=== PATIENT | male | born 1965 | race Two or more races ===

== ENCOUNTER 2024-05-07 22:47 | Emergency (ER) | payer MEDICAID, OTHER ==
[~2024-05-07] VITALS: Ht 195.6 cm; Wt 82.0 kg
--- NOTE | 2024-05-07 23:10 | ED.PDOC ---
History of Present Illness HPI Comments A 58 year old male brought in by EMS presents to the ED with a chief complaint of anxiety onset today. Per EMS, patient was at home, feeling anxious as well as shortness of breath. Patient states he took Fentanyl yesterday, was sober for 2 years. Patient is currently experiencing anxiety, shortness of breath and bilateral lower extremity pain and swelling. Denies chest pain, dizziness, headache, blurry vision, abdominal pain, nausea, vomiting, diarrhea, dysuria. No other symptoms or modifying factors present at this time. Chief Complaint: Anxiety Time Seen by MD: 23:01 Reviewed Notes: Nurses Notes, Certified Surgical Technologist Notes, Medications, Allergies Allergies: Coded Allergies: NO KNOWN ALLERGIES (Unverified , 05/07/24) Information Source: Patient, Emergency Med Personnel Mode of Arrival: EMS Severity: Moderate Timing: Hours Duration: Since onset Prehospital treatment: None Past Medical History PAST MEDICAL HISTORY: Denies Surgical History: Pacemaker Family History Family History: Unknown Social History Smoker: Non-Smoker Alcohol: Denies ETOH Use Drugs: Methamphetamine, Other (Fentanyl) Lives In: Home Constitutional: denies: chills, diaphoresis, fatigue, fever, malaise, sweats, weakness, others EENTM: denies: blurred vision, double vision, ear bleeding, ear discharge, ear drainage, ear pain, ear ringing, eye pain, eye redness, hearing loss, mouth pain, mouth swelling, nasal discharge, nose bleeding, nose congestion, nose pain, photophobia, tearing, throat pain, throat swelling, voice changes, others Respiratory: reports: shortness of breath; denies: cough, hemoptysis, orthopnea, SOB at rest, SOB with excertion, stridor, wheezing, others Cardiovascular: denies: chest pain, dizzy spells, diaphoresis, Dyspnea on exertion, edema, irregular heart beat, left arm pain, lightheadedness, palpitations, PND, syncope, others Gastrointestinal: denies: abdomen distended, abdominal pain, blood streaked bowels, constipated, diarrhea, dysphagia, difficulty swallowing, hematemesis, melena, nausea, poor appetite, poor fluid intake, rectal bleeding, rectal pain, vomiting, others Genitourinary: denies: burning, dysuria, flank pain, frequency, hematuria, incontinence, penile discharge, penile sore, pain, testicle pain, testicle swelling, urgency, others Neurological: denies: dizziness, fainting, headache, left sided numbness, left sided weakness, numbness, paresthesia, pre-existing deficit, right sided numbness, right sided weakness, seizure, speech problems, tingling, tremors, weakness, others Musculoskeletal: reports: others (bilateral leg pain, swelling); denies: back pain, gout, joint pain, joint swelling, muscle pain, muscle stiffness, neck pain Integumetry: denies: bruises, change in color, change in hair/nails, dryness, laceration, lesions, lumps, rash, wounds, others Allergic/Immunocompromised: denies: Difficulty Healing, Frequent Infections, Hives, Itching, others Hematologic/Lymphatic: denies: anemia, blood clots, easy bleeding, easy bruising, swollen glands, others Endocrine: denies: excessive hunger, excessive sweating, excessive thirst, excessive urination, flushing, intolerance to cold, intolerance to heat, unexplained weight gain, unexplained weight loss, others Psychiatric: reports: anxiety; denies: bipolar disorder, depression, hopeless, panic disorder, schizophrenia, sleepless, suicidal, others All Other Systems: Reviewed and Negative Physical Exam General Appearance: Moderate Distress (Patient is a moderate distress at time of evaluation.), Normal HEENT: Normal ENT Inspection, Pharynx Normal, TMs Normal Neck: Full Range of Motion, Non-Tender, Normal, Normal Inspection Respiratory: Chest Non-Tender, Lungs Clear, No Accessory Muscle Use, No Respiratory Distress, Normal Breath Sounds Cardiovascular: No Edema, No JVD, No Murmur, No Gallop, Normal Peripheral Pulses, Tachycardia Breast Exam: Deferred Gastrointestinal: No Organomegaly, Non Tender, No Pulsatile Mass, Normal Bowel Sounds, Soft Genitalia: Deferred Pelvic: Deferred Rectal: Deferred Extremities: Other (Patient displays left lower extremity edema as well as multiple excoriations and wounds to his bilateral lower extremities. Localized erythema and edema.) Neurologic: Alert, No Motor Deficits, Normal Affect, Normal Mood, No Sensory Deficits Cerebellar Function: Normal Reflexes: Normal Skin: Dry, Normal Color, Warm Lymphatic: No Adenopathy Was a procedure done? Was a procedure done?: No Differential Dx Considerations may include: DVT, sepsis, CHF, peripheral edema, drug abuse X-Ray, Labs, Meds, VS Vital Signs Date Time Temp Pulse Resp B/P (MAP) Pulse Ox O2 Delivery O2 Flow Rate FiO2 05/08/24 00:10 110 20 142/73 (96) 97 05/07/24 22:50 98.8 119 18 126/66 (86) 98 Lab Test 05/07/24 23:22 Range/Units White Blood Count 10.6 4.4-10.8 10^3/uL Red Blood Count 4.56 4.5-5.90 10^6/uL Hemoglobin 14.6 13.5-17.5 g/dL Hematocrit 42.9 41.0-53.0 % Mean Corpuscular Volume 94.2 80.0-100.0 fL Mean Corpuscular Hemoglobin 32.0 28.0-32.0 pg Mean Corpuscular Hemoglobin Concent 34.0 32.0-36.0 g/dL Red Cell Distribution Width 12.9 11.8-14.3 % Platelet Count 292 140-450 10^3/uL Mean Platelet Volume 8.4 6.9-10.8 fL Neutrophils (%) (Auto) 78.0 37.0-80.0 % Lymphocytes (%) (Auto) 11.5 10.0-50.0 % Monocytes (%) (Auto) 6.3 0.0-12.0 % Eosinophils (%) (Auto) 3.9 0.0-7.0 % Basophils (%) (Auto) 0.3 0.0-2.0 % Neutrophils # (Auto) 8.3 1.6-8.6 10 ^3/uL Lymphocytes # (Auto) 1.2 0.4-5.4 10 ^3/uL Monocytes # (Auto) 0.7 0-1.3 10 ^3/uL Eosinophils # (Auto) 0.4 0-0.8 10 ^3/uL Basophils # (Auto) 0 0-0.2 10 ^3/uL Nucleated Red Blood Cells 0.0 % Sodium Level 138 136-145 mmol/L Potassium Level 3.9 3.5-5.1 mmol/L Chloride Level 103 98-107 mmol/L Carbon Dioxide Level 28 20-31 mmol/L Anion Gap 7 5-15 Blood Urea Nitrogen 16 9-23 mg/dL Creatinine 0.82 0.700-1.30 mg/dL Glomerular Filtration Rate Calc 103 >90 mL/min BUN/Creatinine Ratio 19.5 10.0-20.0 Serum Glucose 151 H 74-106 mg/dL Lactic Acid Level 3.2 *H 0.4-2.0 mmol/L Calcium Level 10.1 8.7-10.4 mg/dL Total Bilirubin 0.3 0.2-1.0 mg/dL Aspartate Amino Transferase (AST) 39 13-40 U/L Alanine Aminotransferase (ALT) 28 7-40 U/L Alkaline Phosphatase 113 46-116 U/L Troponin I High Sensitivity 3 L </=54 ng/L B-Type Natriuretic Peptide 8.81 0-100 pg/mL Total Protein 7.1 5.7-8.2 g/dL Albumin 4.3 3.2-4.8 g/dL Lipase 27 12-53 U/L Current Medications Medications (Trade) Dose Ordered Sig/Bethany Route Start Time Stop Time Status Last Admin Alprazolam (Xanax Tablet) 1 mg ONCE ONCE PO 05/07/24 23:15 05/07/24 23:16 DC 05/08/24 00:13 X-Ray, Labs, Meds, VS Comment Patient's laboratories were only remarkable for an elevated lactic acid. I inquired as to why we had not done a 2nd draw, and was informed by nursing with the patient appears to have eloped from the facility. Time of 1ST Reevaluation: 02:08 Reevaluation 1ST: Unchanged Consultation: PCP Patient Education/Counseling: Diagnosis, Treatment, Prognosis Family Education/Counseling: Diagnosis, Treatment, No Family Present Additional Information I reviewed the following notes from patient's past medical encounters: The following tests were ordered, and results were reviewed by me: CBC, CMP, BNP, LIPASE, LA W/ REFLEX, UA, DRUG SCREEN, TROP, EKG, US LT LOWER DVT Additional Information was gathered from interviewing the following independent historians: EMS I reviewed and agreed with the following test results read by other providers: US LT LOWER DVT I discussed treatment and results with medical personnel and: patient Departure 1 Departure Time of Disposition: 02:09 Impression: Primary Impression: Anxiety Disposition: 07 LEFT AWOL/ELOPED Condition: Fair Discharged With: Self Critical Care Note Critical Care Time?: No Stability Stability form required: No Heart Score Heart Score: Heart Score Response (Comments) Value History N/A 0 EKG N/A 0 Age N/A 0 Risk Factors N/A 0 Troponin N/A 0 Total 0 I personally scribed for FERNANDO STEIN PAC ([email or web address]) on 05/07/24 at 23:10. Electronically submitted by Adriane Haddad ([email or web address]). I personally scribed for FERNANDO STEIN PAC ([email or web address]) on 05/07/24 at 23:12. Electronically submitted by Adriane Haddad ([email or web address]). FERNANDO STEIN PAC May 07, 2024 23:10
[2024-05-07 23:36] LABS: Basophils # (auto) 0 10 ^3/uL (0-0.2); Basophils % (auto) 0.3 % (0.0-2.0); Eosinophils # (auto) 0.4 10 ^3/uL (0-0.8); Eosinophils % (auto) 3.9 % (0.0-7.0); Hematocrit 42.9 % (41.0-53.0); Hemoglobin 14.6 g/dL (13.5-17.5); Lymphocytes # (auto) 1.2 10 ^3/uL (0.4-5.4); Lymphocytes % (auto) 11.5 % (10.0-50.0); Mean Corpuscular Volume 94.2 fL (80.0-100.0); Monocytes # (auto) 0.7 10 ^3/uL (0-1.3); Monocytes % (auto) 6.3 % (0.0-12.0); Neutrophils # (auto) 8.3 10 ^3/uL (1.6-8.6); Platelet Count (auto) 292 10^3/uL (140-450); Red Blood Cells 4.56 10^6/uL (4.5-5.90); Red Cell Distribution Width 12.9 % (11.8-14.3); White Blood Cell 10.6 10^3/uL (4.4-10.8)
[2024-05-07 23:53] LABS: Alanine Aminotransferase 28 U/L (7-40); Albumin 4.3 g/dL (3.2-4.8); Alkaline Phosphatase 113 U/L (46-116); Anion Gap 7 (5-15); Aspartate Aminotransferase 39 U/L (13-40); Calcium 10.1 mg/dL (8.7-10.4); Carbon Dioxide 28 mmol/L (20-31); Chloride 103 mmol/L (98-107); Lipase 27 U/L (12-53); Potassium 3.9 mmol/L (3.5-5.1); Sodium 138 mmol/L (136-145); Total Protein 7.1 g/dL (5.7-8.2)
[2024-05-08 00:07] LABS: Bilirubin, Total 0.3 mg/dL (0.2-1.0); Glucose 151 mg/dL (74-106)
[2024-05-08 00:10] VITALS: BP 142/73; PULSE 110; RESP 20; O2SAT 97
[2024-05-08] MEDS: ALPRAZolam 0.5 MG TAB PO ONE (00:13)
[2024-05-08 00:16] LABS: BUN/Creatinine Ratio 19.5 (10.0-20.0); Blood Urea Nitrogen 16 mg/dL (9-23)
[2024-05-08 00:21] LABS: Lactic Acid w/Reflex 3.2 mmol/L (0.4-2.0)
[2024-05-08] MEDS ORDERED: SODIUM CHLORIDE 0.9% 1,000 ML IV ONE (01:45)
== END 2024-05-08 02:07 | disposition left against medical advice (07) ==
LOC: EDBD 22:47 → ER 22:47
DX: F41.9 Anxiety disorder, unspecified (principal); F15.90 Other stimulant use, unspecified, uncomplicated; Z95.0 Presence of cardiac pacemaker
CPT/HCPCS: 36415; 80053; 83605; 83690; 83880; 84484; 85025

== ENCOUNTER 2025-04-15 22:09 | Inpatient (IN) | payer MEDICAID ==
[~2025-04-15] VITALS: Ht 195.6 cm; Wt 82.7 kg
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
[2025-04-16] MEDS ORDERED: VANCOMYCIN PER PHARMACY 0 MG IV SCH
[2025-04-16 00:24] LABS: Hematocrit 42.2 % (41.0-53.0); Hemoglobin 14.1 g/dL (13.5-17.5); Mean Corpuscular Hemoglobin 30.0 pg (28.0-32.0); Mean Corpuscular Volume 89.8 fL (80.0-100.0); Nucleated Red Blood Cells % 0.0 %
[2025-04-16 00:25] VITALS: PULSE 108; RESP 16; O2SAT 98
[2025-04-16 00:39] LABS: Chloride 106 mmol/L (98-107); Sodium 144 mmol/L (136-145)
[2025-04-16 00:40] LABS: Potassium 3.4 mmol/L (3.5-5.1)
[2025-04-16 00:41] LABS: Calcium 9.5 mg/dL (8.7-10.4)
[2025-04-16 00:46] LABS: BUN/Creatinine Ratio 11.9 (10.0-20.0)
[2025-04-16] MEDS: SODIUM CHLORIDE 0.9% 1,000 ML IV ONE (00:49)
[2025-04-16 00:53] LABS: Blood Urea Nitrogen 8 mg/dL (9-23); Glucose 117 mg/dL (74-106)
[2025-04-16] MEDS: VANCOMYCIN 1GM/250ML KIT 250 ML IV SCH ×2 (01:19→10:52)
[2025-04-16] MEDS: KETOROLAC TROMETH 30 MG/ML 1ML VIAL IV ONE (01:39)
[2025-04-16 01:40] LABS: Urine Protein, UAD TRACE (Negative)
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
[2025-04-16] MEDS ORDERED: ACETAMINOPHEN 325 MG TAB PO PRN (03:15)
[2025-04-16 03:28] LABS: Amphetamine Screen, Urine Neg (NEGATIVE)
[2025-04-16 03:30] LABS: Cannabinoid Screen, Urine Neg (NEGATIVE)
[2025-04-16 03:43] LABS: Benzodiazephine Screen, Urine Pos (NEGATIVE); Cocaine Screen, Urine Pos (NEGATIVE); Opiate Scree,Urine Neg (NEGATIVE); Phencyclidine Screen, Urine Neg (NEGATIVE)
[2025-04-16] MEDS: diphenhydrAMINE HCL 50 MG/1 ML VL IV ONE (03:56)
[2025-04-16 04:19] VITALS: BP 149/87; PULSE 74; RESP 19; TEMP 97.6; O2SAT 96; O2SAT 98
[2025-04-16 04:31] LABS: Barbiturate Scree,Urine Neg (NEGATIVE)
[2025-04-16 04:34] LABS: Anion Gap 10 (5-15); Carbon Dioxide 28 mmol/L (20-31)
[2025-04-16 06:13] LABS: Alanine Aminotransferase 23.0 U/L (7-40); Albumin 4.4 g/dL (3.2-4.8); Alkaline Phosphatase 79.0 U/L (46-116); Bilirubin, Direct 0.2 mg/dL (<0.3); Bilirubin, Total 0.4 mg/dL (0.2-1.0); Total Protein 7.3 g/dL (5.7-8.2)
[2025-04-16] MEDS: POTASSIUM CHL 20 Meq TABLET PO ONE (06:19)
[2025-04-16] MEDS: LORazepam 2MG/ML-1ML VIAL IV ONE (06:19)
[2025-04-16] MEDS: ENOXAPARIN SOD 40 MG/0.4 ML SYRINGE SC SCH (06:20)
[2025-04-16 09:00] VITALS: BP 138/82; PULSE 78; RESP 18; TEMP 97.3; O2SAT 96
--- NOTE | 2025-04-16 09:27 | DVH ---
Bilateral lower extremity venous duplex Clinical History: SWELLING Comparison: None Technique: Duplex doppler evaluation of the deep venous systems of both lower extremities from the common femoral veins to the popliteal veins including color doppler and spectral/pulsed waveform analysis was performed. Findings: RIGHT SIDE: The common femoral vein demonstrates appropriate compressibility and waveform variability. There is compressibility/patency of the great saphenous vein at the proximal thigh. The femoral vein demonstrates appropriate compressibility and waveform variability. The deep femoral vein demonstrates appropriate compressibility and waveform variability. The popliteal vein demonstrates appropriate compressibility and waveform variability. LEFT SIDE: The common femoral vein demonstrates appropriate compressibility and waveform variability. There is compressibility/patency of the great saphenous vein at the proximal thigh. The femoral vein demonstrates appropriate compressibility and waveform variability. The deep femoral vein demonstrates appropriate compressibility and waveform variability. The popliteal vein demonstrates appropriate compressibility and waveform variability. Impression: 1. No right or left femoropopliteal venous thrombosis.
[2025-04-16 10:50] LABS: COVID19 ANTIGEN SOFIA FIA NEGATIVE (NEGATIVE)
[2025-04-16] MEDS: diphenhydrAMINE HCL 50 MG/1 ML VL IV PRN (11:02)
[2025-04-16] MEDS: KETOROLAC TROMETH 30 MG/ML 1ML VIAL IV PRN (11:13)
[2025-04-16 13:00] VITALS: BP 137/94; PULSE 70; RESP 19; TEMP 97.6; O2SAT 98
[2025-04-16 17:00] VITALS: BP 138/84; PULSE 74; RESP 18; TEMP 97.6; O2SAT 96
[2025-04-16 21:00] VITALS: BP 131/85; PULSE 75; RESP 20; TEMP 98.1; O2SAT 95
[2025-04-17 01:30] VITALS: BP 128/88; PULSE 71; RESP 17; TEMP 97.7; O2SAT 95
[2025-04-17] MEDS: LORazepam 2MG/ML-1ML VIAL IV ONE ×2 (02:17→23:14)
[2025-04-17 05:00] VITALS: BP 150/90; PULSE 71; RESP 17; TEMP 97.6; O2SAT 97
[2025-04-17] MEDS: PANTOPRAZOLE 40 MG TAB PO SCH (05:19)
[2025-04-17 07:56] LABS: Hematocrit 38.7 % (41.0-53.0); Hemoglobin 13.3 g/dL (13.5-17.5); Mean Corpuscular Hemoglobin 31.1 pg (28.0-32.0); Mean Corpuscular Volume 90.3 fL (80.0-100.0); Nucleated Red Blood Cells % 0.1 %
[2025-04-17 07:57] LABS: Alanine Aminotransferase 18 U/L (7-40); Albumin 3.6 g/dL (3.2-4.8); Alkaline Phosphatase 65 U/L (46-116); Anion Gap 10 (5-15); BUN/Creatinine Ratio 11.3 (10.0-20.0); Bilirubin, Total 0.4 mg/dL (0.2-1.0); Calcium 9.3 mg/dL (8.7-10.4); Carbon Dioxide 27 mmol/L (20-31); Chloride 105 mmol/L (98-107); Glucose 101 mg/dL (74-106); Potassium 3.6 mmol/L (3.5-5.1); Sodium 142 mmol/L (136-145); Total Protein 6.1 g/dL (5.7-8.2)
[2025-04-17 08:05] LABS: Blood Urea Nitrogen 7 mg/dL (9-23)
[2025-04-17 09:00] VITALS: BP 121/64; PULSE 85; RESP 18; TEMP 98.6; O2SAT 95
[2025-04-17 13:00] VITALS: BP_SYST 114; BP_SYST 121; BP_DIAS 64; BP_DIAS 93; PULSE 64; PULSE 85; RESP 16; RESP 18; TEMP 98.4; TEMP 98.6; O2SAT 95
--- NOTE | 2025-04-17 15:58 | DVHPN2 ---
Subjective redness in legs are better Reviewed: H&P Changes from previous H/P or p: No Changes Skin: Other (Right thigh abscess, bilateral leg erythema, swelling and induration, bilateral hands erythema and induration.) Objective Vitals Vital Signs Date Time Temp Pulse Resp B/P (MAP) Pulse Ox O2 Delivery O2 Flow Rate FiO2 04/17/25 13:00 98.4 64 18 114/93 (100) 95 98.4 04/17/25 08:10 Room Air* 0 21 Intake/Output Intake and Output 04/17/25 05:00 Intake Total 1250 ml Balance 1250 ml Intake Oral 950 ml IV Total 300 ml # Voids 5 General Appearance: Alert, Oriented X3 HEENT: Atraumatic Lungs: Clear to auscultation Cardiovascular: Regular rate, Normal S1, Normal S2 Extremities: Other (Right lower leg with redness in ankle and heart ) Medications Current Medications Medications Dose Ordered Sig/Bethany Route Start Time Stop Time Status Last Admin Dose Admin Vancomycin HCl 0 ml @ 0 mls/hr PER PHARMACY IV 04/16/25 00:00 Acetaminophen 650 mg Q6HP PRN PO 04/16/25 03:15 Enoxaparin Sodium 40 mg DAILY SC 04/16/25 07:00 04/22/25 07:00 04/17/25 10:17 40 MG Ketorolac Tromethamine 15 mg Q6HPRN PRN IV 04/16/25 03:30 04/21/25 03:29 04/17/25 11:42 15 MG Diphenhydramine HCl 25 mg Q4HP PRN IV 04/16/25 03:30 04/17/25 14:42 25 MG Ceftriaxone Sodium 50 ml @ 100 mls/hr DAILY@2100 IV 04/16/25 21:00 04/16/25 21:42 100 MLS/HR Pantoprazole Sodium 40 mg DAILY@0600 PO 04/17/25 06:00 04/17/25 05:19 40 MG Vancomycin HCl 100 ml @ 100 mls/hr Q8H IV 04/17/25 18:00 Cancel Vancomycin HCl 250 ml @ 200 mls/hr Q12H IV 04/17/25 22:00 Laboratory Results Laboratory Tests 04/17/25 06:38 Chemistry Test 04/17/25 06:38 Albumin 3.6 g/dL (3.2-4.8) Calcium Level 9.3 mg/dL (8.7-10.4) Total Protein 6.1 g/dL (5.7-8.2) LFT Test 04/17/25 06:38 Alanine Aminotransferase (ALT) 18 U/L (7-40) Alkaline Phosphatase 65 U/L (46-116) Aspartate Amino Transferase (AST) 28 U/L (13-40) Total Bilirubin 0.4 mg/dL (0.2-1.0) Urinalysis Test 04/16/25 01:12 Urine Color Yellow (Yellow) Urine Clarity Clear (Clear) Urine pH 5.5 (5.0-9.0) Urine Specific [place] 1.027 (1.001-1.035) Urine Protein Trace (Negative) H Urine Ketones Trace (Negative) Urine Blood Negative /uL (Negative) Urine Nitrite Negative (Negative) Urine Bilirubin Negative (Negative) Urine Urobilinogen 3 mg/dL (Negative) H Urine Leukocyte Esterase Negative /uL (Negative) Urine RBC 15 /hpf (0 - 3) Urine Microscopic WBC 1 /HPF (0-3) Urine Squamous Epithelial Cells None seen /hpf (<5) Urine Bacteria None seen /hpf (None Seen) Urine Mucus Few (None Seen) Urine Glucose Normal mg/dL (Normal) Microbiology Microbiology Date/Time Source Procedure Growth Status 04/16/25 08:52 Thigh Right Gram Stain - Final Resulted 04/16/25 08:52 Thigh Right Wound Culture - Preliminary No growth Resulted 04/16/25 00:11 Blood Blood Culture - Preliminary NO GROWTH AFTER 24 HOURS OF INCUBATION. Resulted Assessment/Plan Assessment/Plan Bilateral leg cellulitis Right thigh abscess, previously MRSA positive. -IV vancomycin -IV ceftriaxone Polysubstance use -UDS positive for multiple substance fentanyl, cocaine, benzodiazepine -counseled regarding cessation for more than 14 minutes Hypokalemia Repleted Hyperglycemia HbA1c 5.2 Diabetic diet Dispo: DC tomorrow if continues to improve Plan discussed with: Patient Date of Service: Apr 17, 2025 Billing Provider: BILL MEJIA MD Common Visit Codes: [id number] INP/OBS CARE(HIGH) BILL MEJIA MD Apr 17, 2025 15:58
[2025-04-17 16:48] VITALS: BP 156/85; PULSE 84; RESP 18; TEMP 98; O2SAT 94
[2025-04-17] MEDS ORDERED: VANCOMYCIN 750MG KIT 100 ML IV SCH (18:00)
[2025-04-17 21:00] VITALS: BP 142/86; PULSE 86; RESP 20; TEMP 98.1; O2SAT 97
[2025-04-17] MEDS: MUPIROCIN 2% OINT 15gm or 22gm FOR MRSA NARES EACHNOSTRI SCH (22:00)
[2025-04-18 01:00] VITALS: BP 140/87; PULSE 79; RESP 19; TEMP 97.7; O2SAT 96
[2025-04-18 05:00] VITALS: BP 128/74; PULSE 77; RESP 18; TEMP 98.1; O2SAT 95
[2025-04-18 08:00] VITALS: PULSE 73; RESP 18; O2SAT 97
[2025-04-18 09:00] VITALS: BP 129/88; PULSE 73; RESP 18; TEMP 98.1; O2SAT 97
[2025-04-18] MEDS ORDERED: DOXY-286 PO (10:13)
[2025-04-18 11:44] VITALS: BP 127/88; PULSE 73; RESP 18; TEMP 98.1; O2SAT 96
[2025-04-18] MEDS ORDERED: LORA2TAB89 PO (12:18)
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
== END 2025-04-18 14:15 | disposition home or self-care (01) | DRG 383 ==
LOC: ER 22:09 → OVERFLOW 04-16 03:03 → WEST WING 04-17 01:30 → CENTRAL 04-17 20:03
PROVIDERS: ADMIT Hospitalist; ATTEND Hospitalist
DX: L03.115 Cellulitis of right lower limb (principal); E87.6 Hypokalemia; L02.415 Cutaneous abscess of right lower limb; L03.116 Cellulitis of left lower limb; F32.A Depression, unspecified; F11.20 Opioid dependence, uncomplicated; Z20.822 Contact with and (suspected) exposure to COVID-19; R73.9 Hyperglycemia, unspecified; F43.10 Post-traumatic stress disorder, unspecified; F41.9 Anxiety disorder, unspecified; G43.909 Migraine, unspecified, not intractable, without status migrainosus; I25.2 Old myocardial infarction; Y92.89 Other specified places as the place of occurrence of the external cause
CPT/HCPCS: 36415; 80048; 80053; 80076; 80202; 80307; 80320; 81001; 82306; 82565; 82607; 83036; 83605; 84443; 85025; 85652; 86141; 87040; 87077; 87081; 87186; 87205; 87426; 87804; 93970; G0378; J1885